=== PATIENT | female | born 1965 ===

== ENCOUNTER → 2018-08-21 14:27 | Outpatient (REF) | payer OTHER, SELFPAY ==
[2018-08-21 15:54] LABS: Free T3, Triiodothyronine Free 3.98 pg/mL (2.77-5.27); Free T4, Direct Thyroxine 1.03 ng/dL (0.78-2.19)
[2018-08-21 16:07] LABS: Thyroid Stimulating Hormone 0.55 uIU/mL (0.47-4.68)
== END ==
LOC: LAB 14:27
PROVIDERS: Visit Provider Naturopath
DX: E03.9 Hypothyroidism, unspecified (principal)
CPT/HCPCS: 36415; 84439; 84443; 84481